=== PATIENT | male | born 1960 | race Hispanic/Latino ===

== ENCOUNTER 2016-11-14 09:57 | Day surgery (SDC) | payer OTHER ==
[2016-11-08 13:39] VITALS: BMI 33.6
[2016-11-14] MEDS ORDERED: Propofol 10 mg/ml Inj (20 ML) ONE ×2 (10:59→11:15)
[2016-11-14] MEDS ORDERED: Lactated Ringer's 1,000 ML IV SCH (11:35)
[2016-11-14 13:29] VITALS: BP 146/88; PULSE 68; RESP 16; TEMP 98; O2SAT 96
== END 2016-11-14 14:20 | disposition home or self-care (01) ==
LOC: ENDO 09:57
PROVIDERS: ATTEND Internal Medicine Gastroenterology
DX: K22.70 Barrett's esophagus without dysplasia (principal); K29.50 Unspecified chronic gastritis without bleeding; K21.9 Gastro-esophageal reflux disease without esophagitis; K64.8 Other hemorrhoids

== ENCOUNTER 2017-01-09 19:07 | Observation (INO) | payer OTHER ==
[2017-01-09] MEDS ORDERED: Morphine 2 mg/ml ISec IVP STA (20:06)
[2017-01-09] MEDS: Sodium Chloride 0.9% 1,000 ML IV SCH (20:57)
[2017-01-09 21:14] LABS: URINE BILIRUBIN NEGATIVE (NEGATIVE); URINE BLOOD NEGATIVE (NEGATIVE); URINE GLUCOSE (UA) NEGATIVE (NEGATIVE); URINE LEUKOCYTE ESTERASE NEGATIVE Leu/uL (NEGATIVE); URINE NITRATE NEGATIVE (NEGATIVE); URINE PROTEIN TRACE mg/dL (<30 mg/dL)
[2017-01-09 21:15] LABS: URINE APPEARANCE SL CLOUDY (CLEAR); URINE COLOR YELLOW (YELLOW); VENOUS BLOOD GAS PO2 33 mm/Hg (30-55); VENOUS BLOOD PH 7.36 (7.32-7.43)
[2017-01-09 21:16] LABS: BASO # 0.01 K/mm3 (0.0-2.0); BASO % 0.1 % (0.0-3.0); EOS # 0.2 (0.0-0.7); EOS % 2.7 % (1.5-5.0); GRAN # 5.73 (1.4-6.5); GRAN % 69.9 % (50.0-68.0); HEMOGLOBIN 15.4 gm/dL (14.0-18.0); LYMPH # 1.5 (1.2-3.4); LYMPH % 17.7 % (22.0-35.0); MEAN CELL VOLUME 87.9 fL (80.0-105.0); MEAN CORPUSCULAR HEMOGLOBIN 30.6 pg (25.0-35.0); MEAN CORPUSCULAR HGB CONC 34.8 g/dl (31.0-37.0); MEAN PLATELET VOLUME 11.1 fl (7.0-11.0); MONO # 0.8 (0.1-0.6); MONO % 9.6 % (1.0-6.0); PLATELET COUNT 171 10^3/uL (120.0-450.0); RBC 5.03 10^6/uL (3.5-6.1); WHITE BLOOD COUNT 8.2 10^3/ul (4.5-11.0)
[2017-01-09 21:25] LABS: ALB/GLOB RATIO 1.2 (1.1-1.8); ALBUMIN 4.1 g/dL (3.0-4.8); ALT/SGPT 41 U/L (7-56); AMYLASE 55 U/L (35-125); AST/SGOT 29 U/L (15-59); BLOOD UREA NITROGEN 19 mg/dL (7-21); CALCIUM 8.9 mg/dL (8.4-10.5); GFR AFRICAN-AMERICAN > 60; GFR NON-AFRICAN AMERICAN > 60; LIPASE 65 U/L (23-300)
[2017-01-09 21:29] LABS: URINE RBC 0 - 2 /hpf (0-2)
[2017-01-09 21:32] LABS: URINE BACTERIA OCC (NEG); URINE EPITHELIAL CELLS 0 - 2 /hpf (0-5); URINE WBC 0 - 2 /hpf (0-6)
[2017-01-09 21:42] LABS: TROPONIN I < 0.01 ng/mL
[2017-01-09 21:49] LABS: INR 1.04 (0.93-1.08); PARTIAL THROMBOPLASTIN TIME 27.2 Seconds (23.7-30.8); PROTHROMBIN TIME 11.2 Seconds (9.9-11.8)
--- NOTE | 2017-01-09 22:50 | ED PDOC ---
Arrival/HPI - General Chief Complaint: Abdominal Pain Time Seen by Provider: 01/09/17 19:14 Historian: Patient - History of Present Illness Narrative History of Present Illness (Text): 01/09/17 19:30 Bradley Briggs is a 56 year old male, with a history of cholecystectomy, presents to the emergency department complaining of abdominal pain associated with nausea, vomiting, and diarrhea since yesterday. Denies any fever, chills, headache, dizziness, chest pain, shortness of breath, urinary symptoms, or any other complaints at this time. Time/Duration: Other (yesterday ) Symptom Onset: Gradual Symptom Course: Unchanged Severity Level: Mild Activities at Onset: Light Past Medical History - Provider Review Nursing Documentation Reviewed: Yes - Cardiac Hx Pacemaker: No Other/Comment: VSD age 11 - Neurological Hx Paralysis: No - Hematological/Oncological Hx Blood Transfusions: No - Musculoskeletal/Rheumatological Hx Musculoskeletal Disorders: Yes - Psychiatric Hx Emotional Abuse: No Hx Physical Abuse: No Hx Substance Use: No - Surgical History Hx Cholecystectomy: Yes - Anesthesia Hx Anesthesia Reactions: No Hx Malignant Hyperthermia: No - Suicidal Assessment Feels Threatened In Home Enviroment: No Family/Social History - Physician Review Nursing Documentation Reviewed: Yes Family/Social History: No Known Family HX Smoking Status: Never Smoked Hx Alcohol Use: Yes (MINIMAL) Hx Substance Use: No Hx Substance Use Treatment: No Allergies/Home Meds Allergies/Adverse Reactions: Allergies erythromycin base Allergy (Severe, Verified 01/10/17 08:23) ITCHING rash & hives withb itching Home Medications: Home Meds Medication Instructions Recorded Confirmed Olmesartan/Amlodipin/Hcthiazid 1 tab PO DAILY 04/20/12 01/10/17 [Tribenzor 5 mg-12.5 mg-40 mg] Pantoprazole [Protonix EC Tab] 40 mg PO DAILY 05/09/13 01/10/17 Naproxen Sodium [Aleve] 2 tab PO DAILY 01/10/17 01/10/17 Review of Systems - Physician Review All systems were reviewed & negative as marked: Yes - Review of Systems Constitutional: Normal. absent: Fatigue, Fevers Eyes: Normal Respiratory: Normal. absent: SOB, Cough, Sputum Gastrointestinal: Abdominal Pain, Diarrhea, Nausea, Vomiting Neurological: Normal. absent: Headache, Dizziness Physical Exam Vital Signs Reviewed: Yes Vital Signs Temp Pulse Resp BP Pulse Ox 01/10/17 03:20 98.5 F 76 18 111/77 01/10/17 02:23 77 16 98 01/09/17 23:00 81 16 114/46 L 97 01/09/17 21:24 96 H 16 132/75 97 01/09/17 19:10 99.1 F 87 18 135/84 98 Temperature: Afebrile Blood Pressure: Normal Pulse: Regular Respiratory Rate: Normal Appearance: Positive for: Well-Appearing, Non-Toxic, Comfortable Pain Distress: None Mental Status: Positive for: Alert and Oriented X 3 - Systems Exam Head: Present: Atraumatic, Normocephalic Pupils: Present: PERRL Extroacular Muscles: Present: EOMI Conjunctiva: Present: Normal Mouth: Present: Moist Mucous Membranes Neck: Present: Normal Range of Motion Respiratory/Chest: Present: Clear to Auscultation, Good Air Exchange. No: Respiratory Distress, Accessory Muscle Use Cardiovascular: Present: Regular Rate and Rhythm, Normal S1, S2. No: Murmurs Abdomen: Present: Tenderness (LLQ abdominal tenderness ), Normal Bowel Sounds. No: Distention, Peritoneal Signs, Rebound, Guarding Upper Extremity: Present: Normal Inspection. No: Cyanosis, Edema Lower Extremity: Present: Normal Inspection. No: Edema Neurological: Present: GCS=15, CN II-XII Intact, Speech Normal, Motor Func Grossly Intact, Normal Sensory Function Skin: Present: Warm, Dry, Normal Color. No: Rashes Psychiatric: Present: Alert, Oriented x 3, Normal Insight, Normal Concentration Medical Decision Making ED Course and Treatment: 01/09/17 19:30 Impression: A 56 year old male who presents to the emergency department complaining of abdominal pain associated with nausea, vomiting, and diarrhea since yesterday. Plan: -- CT abdomen Pelvis -- EKG -- Morphine -- Potassium chloride 20mEq -- IVF -- Zofran -- Blood Culture -- Reassess and disposition Progress Notes: 01/09/17 20:33 EKG reviewed by me: NSR @ 78 bpm. Right bundle branch block. Left anterior fascicular block. Bifasicular block. 01/09/17 21:37 CT Abdomen Pelvis reviewed: FINDINGS: Lower thorax: There is presence of gastric fluid within the distal esophagus which may represent gastroesophageal reflux. Lung bases clear. ABDOMEN: Liver: Unremarkable. No suspicious lesions are seen. Gallbladder and bile ducts: There has been a cholecystectomy. Mild compensatory biliary enlargement secondary to gallbladder absence. Pancreas: Unremarkable. No ductal dilation. Spleen: Unremarkable. No splenomegaly. Adrenals: Unremarkable. No mass. Kidneys and ureters: A simple cyst is identified in the patient's left kidney. Kidneys otherwise show no significant abnormalities. No obstructing stones. No hydronephrosis. Stomach and bowel: Dilated fluid-filled small bowel loops concerning for partial small bowel obstruction, measuring up to 3.4 cm. Location of the transition is not readily apparent. Some collapsed small bowel loops are seen in the mid and lower abdomen and in the right lower quadrant. Remaining bowel appears unremarkable. The stomach is fluid-filled without wall thickening or focal lesions. Appendix: A normal appendix is identified. PELVIS: Bladder: Unremarkable. No stones. Reproductive: Unremarkable as visualized. ABDOMEN and PELVIS: Intraperitoneal space: Unremarkable. No free air. No significant fluid collection. Bones/joints: The spine demonstrates moderate degenerative changes at multiple levels. No acute fracture. No dislocation. Soft tissues: Small fat-containing paraumbilical hernia is present. Vasculature: Unremarkable. No abdominal aortic aneurysm. Lymph nodes: Unremarkable. No enlarged lymph nodes. IMPRESSION: Findings concerning for partial small bowel obstruction without a clear transition. Appendix is normal. Patient post cholecystectomy. Simple left renal cyst. Thank you for allowing us to participate in the care of your patient. Dictated and Authenticated by: Lul Finn MD 01/10/17 01:10 Case discussed with who is aware and agrees with the plan to observe patient at Med/Surg for partial small bowel obstruction. Accepts patient under his service. 01/11/17 05:15 - Lab Interpretations Microbiology Results: Microbiology Results 01/09/17 21:00 Blood-Venous Blood Culture - Preliminary NO GROWTH AFTER 24 HOURS 01/09/17 20:30 Blood-Venous Blood Culture - Preliminary NO GROWTH AFTER 24 HOURS Lab Results: 01/09/17 21:00 01/09/17 21:00 Lab Results 01/09/17 21:00: Phosphorus 3.5, Magnesium 1.8 01/09/17 21:00: pO2 33, VBG pH 7.36, VBG pCO2 55.0, VBG HCO3 31.1 H, VBG Total CO2 32.8 H, VBG O2 Sat (Calc) 68.7 H, VBG Base Excess 4.0 H, VBG Potassium 3.2 L , Sodium 139.0, Chloride 103.0, Glucose 109, Lactate 1.0, FiO2 21.0, Venous Blood Potassium 3.2 L 01/09/17 21:00: Sodium 140, Chloride 100, Potassium 3.1 L, Carbon Dioxide 29, Anion Gap 14, BUN 19, Creatinine 0.9, Est GFR ( Amer) > 60, Est GFR (Non- Af Amer) > 60, Random Glucose 106, Calcium 8.9, Total Bilirubin 0.8, AST 29, ALT 41, Alkaline Phosphatase 83, Lactate Dehydrogenase 263 L, Total Creatine Kinase 151, Troponin I < 0.01, Total Protein 7.4, Albumin 4.1, Globulin 3.4, Albumin/Globulin Ratio 1.2, Amylase 55, Lipase 65 01/09/17 21:00: Urine Color Yellow, Urine Appearance Sl cloudy, Urine pH 6.0, Ur Specific [place] >= 1.030, Urine Protein Trace H, Urine Glucose (UA) Negative , Urine Ketones Negative, Urine Blood Negative, Urine Nitrate Negative, Urine Bilirubin Negative, Urine Urobilinogen 1.0 H, Ur Leukocyte Esterase Negative, Urine RBC 0 - 2, Urine WBC 0 - 2, Ur Epithelial Cells 0 - 2, Urine Bacteria Occ 01/09/17 21:00: PT 11.2, INR 1.04, APTT 27.2 01/09/17 21:00: WBC 8.2, RBC 5.03, Hgb 15.4, Hct 44.2, MCV 87.9, MCH 30.6, MCHC 34.8, RDW 13.0, Plt Count 171, MPV 11.1 H, Gran % 69.9 H, Lymph % (Auto) 17.7 L , [place] % (Auto) 9.6 H, Eos % (Auto) 2.7, Baso % (Auto) 0.1, Gran # 5.73, Lymph # 1.5, [place] # 0.8 H, Eos # 0.2, Baso # 0.01 I have reviewed the lab results: Yes - RAD Interpretation Radiology Orders: 01/09/17 20:06 ABD & PELVIS W/O PO OR IV CONT [CT] Stat Packing Machine Can Feeder: Radiologist - EKG Interpretation Interpreted by ED Physician: Yes Type: 12 lead EKG - Medication Orders Current Medication Orders: Amlodipine Besylate (Norvasc) 5 mg PO DAILY [facility] Last Admin: 01/10/17 09:30 Dose: 5 mg Heparin Sodium (Porcine) (Heparin) 5,000 units SC Q12 [facility] PRN Reason: Protocol Last Admin: 01/10/17 22:04 Dose: 5,000 units Hydrochlorothiazide (Microzide) 12.5 mg PO DAILY [facility] Last Admin: 01/10/17 09:30 Dose: 12.5 mg Sodium Chloride (Sodium Chloride 0.9%) 1,000 mls @ 80 mls/hr IV .[id number] [facility] Last Admin: 01/10/17 03:59 Dose: 80 mls/hr Losartan Potassium (Cozaar) 100 mg PO DAILY [facility] Last Admin: 01/10/17 09:29 Dose: 100 mg Pantoprazole Sodium (Protonix Ec Tab) 40 mg PO 0600 [facility] Discontinued Medications Potassium Chloride (Potassium Chloride 20 Meq/100 Ml) 20 meq in 100 mls @ 50 mls/hr IVPB ONCE ONE Stop: 01/09/17 23:32 Last Admin: 01/10/17 00:34 Dose: 50 mls/hr Potassium Chloride (Potassium Chloride 20 Meq/100 Ml) 20 meq in 100 mls @ 50 mls/hr IVPB ONCE STA Stop: 01/10/17 02:53 Last Admin: 01/10/17 04:00 Dose: 50 mls/hr Morphine Sulfate (Morphine) 2 mg IVP STAT STA Stop: 01/09/17 20:07 Last Admin: 01/09/17 20:57 Dose: 2 mg Ondansetron HCl (Zofran Inj) 4 mg IVP STAT STA Stop: 01/09/17 20:07 Last Admin: 01/09/17 20:57 Dose: 4 mg Pantoprazole Sodium (Protonix Ec Tab) 40 mg PO STAT STA Stop: 01/10/17 00:39 Last Admin: 01/10/17 02:49 Dose: 40 mg Pantoprazole Sodium (Protonix Susp) 40 mg PO 0600 [facility] Last Admin: 01/10/17 07:04 Dose: - Scribe Statement The provider has reviewed the documentation as recorded by the Demond López Provider Attestation: Provider Scribe Attestation: All medical record entries made by the Scribe were at my direction and personally dictated by me. I have reviewed the chart and agree that the record accurately reflects my personal performance of the history, physical exam, medical decision making, and the department course for this patient. I have also personally directed, reviewed, and agree with the discharge instructions and disposition. Disposition/Present on Arrival - Present on Arrival Any Indicators Present on Arrival: No History of DVT/PE: No History of Uncontrolled Diabetes: No Urinary Catheter: No History of Decub. Ulcer: No History Surgical Site Infection Following: None - Disposition Have Diagnosis and Disposition been Completed?: Yes Diagnosis: Small bowel obstruction Disposition: HOSPITALIZED Disposition Time: 22:00 Condition: FAIR
--- NOTE | 2017-01-09 23:58 | CP.PCM.HP ---
History of Present Illness - History of Present Illness History of Present Illness: Patient is a 56 year old male with a PMHx of hypertension, pre- barretts esophagus, TOF, VSD, cervical stenosis who presents to the ED for evaluation of abdominal pain which began last Sunday evening after eating food from 01/02. The pain is described as dull and burning in nature and remains localized to the RLL and LLL. Patient admits to tolerating diet, experiencing flatus, and having nonbloody bowel movements, one of which was experienced in the ED. Denies fever, chills, chest pain, SOB, vomitting, diarrhea, constipation , and urinary symptoms. PMHx: hypertension, pre-barretts esophagus, TOF, VSD, cervical stenosis PSHx: cholecystectomy, R shoulder rotator cuff and labrum repair, left knee athroscopy, Social Hx: occasional ETOH use, denies tobacco use, denies illicit drug use Allergies: erythromycin- hives Family Hx: mother - diabetes Meds: Please see med rec Present on Admission - Present on Admission Any Indicators Present on Admission: No Review of Systems - Review of Systems Review of Systems: 12 point review of system negative except as indicated in HPI. Past Patient History - Past Social History Smoking Status: Never Smoked - CARDIAC Hx Pacemaker: No Other/Comment: VSD age 11 - NEUROLOGICAL Hx Paralysis: No - HEMATOLOGICAL/ONCOLOGICAL Hx Blood Transfusions: No - MUSCULOSKELETAL/RHEUMATOLOGICAL Hx Musculoskeletal Disorders: Yes - PSYCHIATRIC Hx Emotional Abuse: No Hx Physical Abuse: No Hx Substance Use: No - SURGICAL HISTORY Hx Cholecystectomy: Yes - ANESTHESIA Hx Anesthesia Reactions: No Hx Malignant Hyperthermia: No Meds Allergies/Adverse Reactions: Allergies Allergy/AdvReac Type Severity Reaction Status Date / Time erythromycin base Allergy Severe ITCHING Verified 11/08/16 13:40 Physical Exam - Constitutional Appears: Well, Non-toxic, No Acute Distress - Head Exam Head Exam: ATRAUMATIC, NORMAL INSPECTION - Eye Exam Eye Exam: EOMI, Normal appearance, PERRL - ENT Exam ENT Exam: Mucous Membranes Moist - Neck Exam Neck exam: Positive for: Normal Inspection. Negative for: Tenderness - Respiratory Exam Respiratory Exam: Clear to Auscultation Bilateral, NORMAL BREATHING PATTERN. absent: Rales, Rhonchi, Wheezes - Cardiovascular Exam Cardiovascular Exam: REGULAR RHYTHM, +S1, +S2 - GI/Abdominal Exam GI & Abdominal Exam: Normal Bowel Sounds, Soft, Tenderness. absent: Distended, Guarding, Rebound, Rigid Additional comments: no fluid wave - Back Exam Back exam: NORMAL INSPECTION - Neurological Exam Neurological exam: Alert, CN II-XII Intact, Oriented x3 - Psychiatric Exam Psychiatric exam: Normal Affect, Normal Mood - Skin Skin Exam: Normal Color, Warm Results - Vital Signs Recent Vital Signs: Last Vital Signs Temp 99.1 F 01/09/17 19:10 Pulse 81 01/09/17 23:00 Resp 16 01/09/17 23:00 BP 114/46 L 01/09/17 23:00 Pulse Ox 97 01/09/17 23:00 - Labs Result Diagrams: 01/09/17 21:00 01/09/17 21:00 Labs: Laboratory Results - last 24 hr 01/09/17 01/09/17 01/09/17 21:00 21:00 21:00 WBC 8.2 RBC 5.03 Hgb 15.4 Hct 44.2 MCV 87.9 MCH 30.6 MCHC 34.8 RDW 13.0 Plt Count 171 MPV 11.1 H Gran % 69.9 H Lymph % (Auto) 17.7 L [place] % (Auto) 9.6 H Eos % (Auto) 2.7 Baso % (Auto) 0.1 Gran # 5.73 Lymph # 1.5 [place] # 0.8 H Eos # 0.2 Baso # 0.01 PT 11.2 INR 1.04 APTT 27.2 pO2 VBG pH VBG pCO2 VBG HCO3 VBG Total CO2 VBG O2 Sat (Calc) VBG Base Excess VBG Potassium Sodium Chloride Glucose Lactate FiO2 Potassium Carbon Dioxide Anion Gap BUN Creatinine Est GFR ( Amer) Est GFR (Non-Af Amer) Random Glucose Calcium Total Bilirubin AST ALT Alkaline Phosphatase Lactate Dehydrogenase Total Creatine Kinase Troponin I Total Protein Albumin Globulin Albumin/Globulin Ratio Amylase Lipase Venous Blood Potassium Urine Color Yellow Urine Appearance Sl cloudy Urine pH 6.0 Ur Specific [place] >= 1.030 Urine Protein Trace H Urine Glucose (UA) Negative Urine Ketones Negative Urine Blood Negative Urine Nitrate Negative Urine Bilirubin Negative Urine Urobilinogen 1.0 H Ur Leukocyte Esterase Negative Urine RBC 0 - 2 Urine WBC 0 - 2 Ur Epithelial Cells 0 - 2 Urine Bacteria Occ 01/09/17 01/09/17 21:00 21:00 WBC RBC Hgb Hct MCV MCH MCHC RDW Plt Count MPV Gran % Lymph % (Auto) [place] % (Auto) Eos % (Auto) Baso % (Auto) Gran # Lymph # [place] # Eos # Baso # PT INR APTT pO2 33 VBG pH 7.36 VBG pCO2 55.0 VBG HCO3 31.1 H VBG Total CO2 32.8 H VBG O2 Sat (Calc) 68.7 H VBG Base Excess 4.0 H VBG Potassium 3.2 L Sodium 140 139.0 Chloride 100 103.0 Glucose 109 Lactate 1.0 FiO2 21.0 Potassium 3.1 L Carbon Dioxide 29 Anion Gap 14 BUN 19 Creatinine 0.9 Est GFR ( Amer) > 60 Est GFR (Non-Af Amer) > 60 Random Glucose 106 Calcium 8.9 Total Bilirubin 0.8 AST 29 ALT 41 Alkaline Phosphatase 83 Lactate Dehydrogenase 263 L Total Creatine Kinase 151 Troponin I < 0.01 Total Protein 7.4 Albumin 4.1 Globulin 3.4 Albumin/Globulin Ratio 1.2 Amylase 55 Lipase 65 Venous Blood Potassium 3.2 L Urine Color Urine Appearance Urine pH Ur Specific [place] Urine Protein Urine Glucose (UA) Urine Ketones Urine Blood Urine Nitrate Urine Bilirubin Urine Urobilinogen Ur Leukocyte Esterase Urine RBC Urine WBC Ur Epithelial Cells Urine Bacteria Assessment & Plan - Assessment and Plan (Free Text) Assessment: Patient is a 56 year old male with a PMHx of hypertension, pre-barretts esophagus, TOF, VSD, cervical stenosis who is being admitted for evaluation and treatment of abdominal pain. 1. Abdominal Pain - CT without IV or PO contrast of abdomen and pelvis official read pending at time of admission - as per ER physician the the scan is showing a partial bowel obstruction - pantoprazole - NPO - IVF NS @ 75 2. Hypokalemia - replete - monitor via bmp 3. Hypertension - continue home tribenzor 4. GERD - protonixs - keep head of bed greater than 30 degrees 5. PPX - subq heparin Patient discussed with attending, Dr. Garsia
[2017-01-10] MEDS ORDERED: Pantoprazole 40 mg EC Tab PO STA (00:38)
[2017-01-10 03:29] LABS: MAGNESIUM 1.8 mg/dL (1.7-2.2)
[2017-01-10] MEDS: Sodium Chloride 0.9% 1,000 ML IV SCH (03:59)
[2017-01-10 04:37] VITALS: BMI 33.6
[2017-01-10] MEDS ORDERED: Pantoprazole 40 mg Susp UD PO SCH (06:00)
[2017-01-10 06:52] LABS: BASO # 0.01 K/mm3 (0.0-2.0); BASO % 0.2 % (0.0-3.0); EOS # 0.1 (0.0-0.7); EOS % 2.8 % (1.5-5.0); GRAN # 2.68 (1.4-6.5); HEMOGLOBIN 12.7 gm/dL (14.0-18.0); LYMPH # 1.4 (1.2-3.4); LYMPH % 29.1 % (22.0-35.0); MEAN CELL VOLUME 88.4 fL (80.0-105.0); MEAN CORPUSCULAR HGB CONC 33.9 g/dl (31.0-37.0); MEAN PLATELET VOLUME 10.8 fl (7.0-11.0); MONO # 0.5 (0.1-0.6); MONO % 10.9 % (1.0-6.0); PLATELET COUNT 154 10^3/uL (120.0-450.0); RBC 4.24 10^6/uL (3.5-6.1); RED CELL DISTRIBUTION WIDTH 13.2 % (11.5-14.5); WHITE BLOOD COUNT 4.7 10^3/ul (4.5-11.0)
[2017-01-10 07:52] LABS: ALB/GLOB RATIO 1.2 (1.1-1.8); ALT/SGPT 33 U/L (7-56); AST/SGOT 18 U/L (15-59); BLOOD UREA NITROGEN 16 mg/dL (7-21); CALCIUM 7.9 mg/dL (8.4-10.5); GFR AFRICAN-AMERICAN > 60; GFR NON-AFRICAN AMERICAN > 60
--- NOTE | 2017-01-10 10:50 | CT ---
PROCEDURE: CT Abdomen and Pelvis without intravenous contrast HISTORY: abd pain COMPARISON: 10/15/2016 TECHNIQUE: Without contrast. Contrast Dose: Radiation dose: Total exam DLP = 1000 mGy-cm. This CT exam was performed using one or more of the following dose reduction techniques: Automated exposure control, adjustment of the mA and/or kV according to patient size, and/or use of iterative reconstruction technique. FINDINGS: LOWER THORAX: Unremarkable. LIVER: Unremarkable. No gross lesion or ductal dilatation. GALLBLADDER AND BILE DUCTS: Gallbladder removed PANCREAS: Unremarkable. No gross lesion or ductal dilatation. SPLEEN: Unremarkable. ADRENALS: Unremarkable. No mass. KIDNEYS AND URETERS: Unremarkable. No hydronephrosis. No solid mass. VASCULATURE: Unremarkable. No aortic aneurysm. BOWEL: Dilated small bowel loops are seen proximally measuring up to 3.4 cm. Distal small bowel loops are normal in caliber. The exact transition point cannot be identified. Findings consistent with partial small bowel obstruction APPENDIX: Unremarkable. Normal appendix. PERITONEUM: Unremarkable. No free fluid. No free air. LYMPH NODES: Unremarkable. No enlarged lymph nodes. BLADDER: Unremarkable. REPRODUCTIVE: Unremarkable. BONES: No acute fracture. OTHER FINDINGS: The report concurs with the preliminary [facility] report IMPRESSION: Partial small bowel obstruction
--- NOTE | 2017-01-10 12:25 | CP.PCM.CON ---
History of Present Illness - History of Present Illness History of Present Illness: General Surgery Consult Note Dr. Purcell Patient presented to ED yesterday 01/09 for abdominal pain in RLQ and LLQ which started Saturday 01/06. Surgery consulted for advice on advancing diet. Patient states tenderness, nausea, subjective fever, malaise. denies vomiting. Yesterday morning he had some formed stool and an episode of soft stool at the ED. CT scan without PO/IV contrast showed a final reading of Partial SBO. Patient seen at bedside, admits to being comfortable. His last colonoscopy showed diverticuli. Patient denies flatus or BM since admission. PMH: HTN, VSD and TOF repair, cervical stenosis, per-barretts esophagus PSH: Bilateral Inguinal hernia repair (laparascopic) and Cholecystectomy 10 years ago. Allergies: Erythromycin Review of Systems - Constitutional Constitutional: As Per HPI, Malaise - Cardiovascular Cardiovascular: absent: Chest Pain, Pedal Edema - Respiratory Respiratory: absent: Stridor - Gastrointestinal Gastrointestinal: Abdominal Pain, Constipation, Heartburn, Loose Stools. absent : Diarrhea, Excessive Flatus, Fecal Incontinence, Hematemesis, Hematochezia, Melena Past Patient History - Past Social History Smoking Status: Never Smoked - CARDIAC Hx Pacemaker: No Other/Comment: VSD age 11 - PULMONARY Hx Respiratory Disorders: Yes Hx Asthma: Yes (touch of asthma 15 yrs ago) Hx Bronchitis: Yes - NEUROLOGICAL Hx Paralysis: No - HEENT Hx HEENT Problems: No - RENAL Hx Chronic Kidney Disease: No - ENDOCRINE/METABOLIC Hx Endocrine Disorders: No - HEMATOLOGICAL/ONCOLOGICAL Hx Blood Transfusions: No - INTEGUMENTARY Hx Dermatological Problems: No - MUSCULOSKELETAL/RHEUMATOLOGICAL Hx Musculoskeletal Disorders: Yes - GASTROINTESTINAL Hx Gastrointestinal Disorders: Yes Hx Diverticulitis: Yes Hx Gall Bladder Disease: Yes (post cholecystectomy) Hx Gastroesophageal Reflux: Yes Other/Comment: pre Barrets esophagus, esphageal erosions - GENITOURINARY/GYNECOLOGICAL Hx Genitourinary Disorders: No - PSYCHIATRIC Hx Emotional Abuse: No Hx Physical Abuse: No Hx Substance Use: No - SURGICAL HISTORY Hx Cholecystectomy: Yes - ANESTHESIA Hx Anesthesia Reactions: No Hx Malignant Hyperthermia: No Meds Allergies/Adverse Reactions: Allergies Allergy/AdvReac Type Severity Reaction Status Date / Time erythromycin base Allergy Severe ITCHING Verified 01/10/17 08:23 - Medications Medications: Current Medications Amlodipine Besylate (Norvasc) 5 mg PO DAILY [facility] Last Admin: 01/10/17 09:30 Dose: 5 mg Heparin Sodium (Porcine) (Heparin) 5,000 units SC Q12 [facility] PRN Reason: Protocol Last Admin: 01/10/17 09:29 Dose: 5,000 units Hydrochlorothiazide (Microzide) 12.5 mg PO DAILY [facility] Last Admin: 01/10/17 09:30 Dose: 12.5 mg Sodium Chloride (Sodium Chloride 0.9%) 1,000 mls @ 80 mls/hr IV .[id number] [facility] Last Admin: 01/10/17 03:59 Dose: 80 mls/hr Losartan Potassium (Cozaar) 100 mg PO DAILY [facility] Last Admin: 01/10/17 09:29 Dose: 100 mg Pantoprazole Sodium (Protonix Ec Tab) 40 mg PO 0600 [facility] Physical Exam - Constitutional Appears: Well - Head Exam Head Exam: NORMAL INSPECTION - Eye Exam Eye Exam: EOMI, Normal appearance Pupil Exam: NORMAL ACCOMODATION - ENT Exam ENT Exam: Mucous Membranes Moist - GI/Abdominal Exam GI & Abdominal Exam: Hypoactive Bowel Sounds, Soft, Tenderness. absent: Distended, Firm, Guarding, Hernia, Hyperactive Bowel Sounds, Pulsatile Mass, Rebound, Rigid Additional comments: rlq tenderness and periumbilical tenderness Results - Vital Signs Recent Vital Signs: Last Vital Signs Temp 97.8 F 01/10/17 06:00 Pulse 67 01/10/17 06:00 Resp 18 01/10/17 06:00 BP 115/70 01/10/17 09:30 Pulse Ox 97 01/10/17 06:00 - Labs Result Diagrams: 01/10/17 06:15 01/10/17 06:30 Labs: Laboratory Results - last 24 hr 01/10/17 01/10/17 06:15 06:30 WBC 4.7 D RBC 4.24 Hgb 12.7 L Hct 37.5 L MCV 88.4 MCH 30.0 MCHC 33.9 RDW 13.2 Plt Count 154 MPV 10.8 Gran % 57.0 Lymph % (Auto) 29.1 [place] % (Auto) 10.9 H Eos % (Auto) 2.8 Baso % (Auto) 0.2 Gran # 2.68 Lymph # 1.4 [place] # 0.5 Eos # 0.1 Baso # 0.01 Sodium 139 Potassium 3.6 Chloride 103 Carbon Dioxide 28 Anion Gap 12 BUN 16 Creatinine 0.8 Est GFR ( Amer) > 60 Est GFR (Non-Af Amer) > 60 Random Glucose 103 Calcium 7.9 L Total Bilirubin 0.5 AST 18 ALT 33 Alkaline Phosphatase 65 Total Protein 5.5 L Albumin 3.0 Globulin 2.5 Albumin/Globulin Ratio 1.2
--- NOTE | 2017-01-10 12:37 | CARD ---
APPROVED REPORT EKG Measurement Heart [id number] <Conclusion> Normal sinus rhythm Right bundle branch block Left anterior fascicular block Bifascicular block Cannot rule out Inferior infarct (masked by fascicular block?), age undetermined Abnormal ECG
--- NOTE | 2017-01-10 20:30 | CP.PCM.PN ---
Addendum entered and electronically signed by Wayne Jones DO 01/12/17 09:48: Patient was seen and examined and case was discussed at length with Dr. Buenrostro. Patient having some residual abdominal pain but no N/V. Surgery to see patient. Wayne Jones D.O. PGY-2 Original Note: <ZACHARY BUENROSTRO - Last Filed: 01/10/17 19:52> Subjective - Date & Time of Evaluation Date of Evaluation: 01/10/17 Time of Evaluation: 06:45 - Subjective Subjective: Zachary Buenrostro DO PGY1 - Internal Medicine Progress Note - Dedousis/Adaniel Service Patient seen and evaluated at bedside. Patient was admitted yesterday after CT scan in ED was concerning for partial SBO per ED physician. Today, he still feels distended, and hasn't had a BM since his BM in the ED, but has passed flatus. He denies abdominal pain, nausea, vomiting, diarrhea, F/C. He also endorses a normal appetite. Objective - Vital Signs/Intake and Output Vital Signs (last 24 hours): Temp Pulse Resp BP Pulse Ox 98.4 F 50 L 19 134/89 97 01/10/17 16:00 01/10/17 16:00 01/10/17 16:00 01/10/17 16:00 01/10/17 16:00 Intake and Output: 01/10/17 01/11/17 18:59 06:59 Intake Total 360 Output Total 1 Balance 359 - Medications Medications: Current Medications Amlodipine Besylate (Norvasc) 5 mg PO DAILY [facility] Last Admin: 01/10/17 09:30 Dose: 5 mg Heparin Sodium (Porcine) (Heparin) 5,000 units SC Q12 [facility] PRN Reason: Protocol Last Admin: 01/10/17 09:29 Dose: 5,000 units Hydrochlorothiazide (Microzide) 12.5 mg PO DAILY [facility] Last Admin: 01/10/17 09:30 Dose: 12.5 mg Sodium Chloride (Sodium Chloride 0.9%) 1,000 mls @ 80 mls/hr IV .[id number] [facility] Last Admin: 01/10/17 03:59 Dose: 80 mls/hr Losartan Potassium (Cozaar) 100 mg PO DAILY [facility] Last Admin: 01/10/17 09:29 Dose: 100 mg Pantoprazole Sodium (Protonix Ec Tab) 40 mg PO 0600 [facility] - Labs Labs: 01/10/17 06:15 01/10/17 06:30 PT 11.2 Seconds (9.9-11.8) 01/09/17 21:00 INR 1.04 (0.93-1.08) 01/09/17 21:00 APTT 27.2 Seconds (23.7-30.8) 01/09/17 21:00 - Constitutional Appears: Non-toxic, No Acute Distress - Head Exam Head Exam: ATRAUMATIC, NORMOCEPHALIC - Eye Exam Eye Exam: EOMI, Normal appearance - ENT Exam ENT Exam: Mucous Membranes Moist - Neck Exam Neck Exam: Full ROM, Normal Inspection. absent: Meningismus, Tenderness - Respiratory Exam Respiratory Exam: Clear to Ausculation Bilateral. absent: Rales, Rhonchi, Wheezes - Cardiovascular Exam Cardiovascular Exam: RRR, +S1, +S2 - GI/Abdominal Exam GI & Abdominal Exam: Soft, Tenderness (Mild, LLQ, RLQ), Normal Bowel Sounds. absent: Guarding, Rigid - Extremities Exam Extremities Exam: Full ROM, Normal Inspection - Back Exam Back Exam: NORMAL INSPECTION. absent: CVA tenderness (L), CVA tenderness (R) - Neurological Exam Neurological Exam: Alert, Awake, Oriented x3 - Psychiatric Exam Psychiatric exam: Normal Affect, Normal Mood - Skin Skin Exam: Dry, Intact Assessment and Plan - Assessment and Plan (Free Text) Assessment: Patient is a 56 year old male with a PMHx of hypertension, TOF, VSD, cervical stenosis who is being treated for partial SBO. Plan: 1. Partial SBO - CT without IV or PO contrast of abdomen and pelvis read as significant for partial SBO - Continue pantoprazole - Advance to clear liquid diet - Consult general surgery - IVF NS @ 75 - Consider d/c tomorrow if patient has BM and normal appetite 2. Hypokalemia - Improved - Continue to monitor 3. Hypertension - Continue home tribenzor 4. GERD - Continue protonix - keep head of bed greater than 30 degrees DVT Ppx - SQ heparin Patient discussed with senior resident Dr. Jones PGY2 and attending, Dr. Webber <Pritesh Webber - Last Filed: 01/15/17 17:18> Objective - Vital Signs/Intake and Output Vital Signs (last 24 hours): Temp Pulse Resp BP Pulse Ox 97.6 F 68 19 140/92 H 97 01/11/17 16:00 01/11/17 16:00 01/11/17 16:00 01/11/17 16:00 01/11/17 16:00 - Labs Labs: 01/12/17 06:00 01/12/17 06:00 PT 11.2 Seconds (9.9-11.8) 01/09/17 21:00 INR 1.04 (0.93-1.08) 01/09/17 21:00 APTT 27.2 Seconds (23.7-30.8) 01/09/17 21:00 Attending/Attestation - Attestation I have personally seen and examined this patient.: Yes I have fully participated in the care of the patient.: Yes I have reviewed all pertinent clinical information, including history, physical exam and plan: Yes Notes (Text): 01/15/17 17:18 Medical record note made by the resident after discussion with my direction and input after the patient was personally seen and examined by me. I have reviewed the chart and agree that the record accurately reflects by personal performance of the history, physical exam, data review, and medical decision-making, in the course for the patient. I have also personally directed the plan of care.
[2017-01-11] MEDS: Pantoprazole 40 mg EC Tab PO SCH (05:54)
[2017-01-11] MEDS: Sodium Chloride 0.9% 1,000 ML IV SCH (05:55)
[2017-01-11 07:30] LABS: ALB/GLOB RATIO 1.1 (1.1-1.8); ALT/SGPT 39 U/L (7-56); AST/SGOT 24 U/L (15-59); BLOOD UREA NITROGEN 10 mg/dL (7-21); CALCIUM 7.9 mg/dL (8.4-10.5); GFR AFRICAN-AMERICAN > 60; GFR NON-AFRICAN AMERICAN > 60
[2017-01-11 07:34] LABS: BASO # 0.01 K/mm3 (0.0-2.0); BASO % 0.2 % (0.0-3.0); EOS # 0.2 (0.0-0.7); GRAN % 43.2 % (50.0-68.0); HEMOGLOBIN 12.7 gm/dL (14.0-18.0); LYMPH # 1.7 (1.2-3.4); LYMPH % 36.7 % (22.0-35.0); MEAN CELL VOLUME 88.8 fL (80.0-105.0); MEAN CORPUSCULAR HEMOGLOBIN 29.7 pg (25.0-35.0); MEAN CORPUSCULAR HGB CONC 33.5 g/dl (31.0-37.0); MEAN PLATELET VOLUME 11.5 fl (7.0-11.0); MONO # 0.7 (0.1-0.6); MONO % 14.9 % (1.0-6.0); PLATELET COUNT 163 10^3/uL (120.0-450.0); RBC 4.27 10^6/uL (3.5-6.1); RED CELL DISTRIBUTION WIDTH 12.9 % (11.5-14.5); WHITE BLOOD COUNT 4.6 10^3/ul (4.5-11.0)
--- NOTE | 2017-01-11 08:07 | CP.PCM.PN ---
Subjective - Date & Time of Evaluation Date of Evaluation: 01/11/17 Time of Evaluation: 08:03 - Subjective Subjective: General Surgery Note Resident: Maximino Attending: Binh EDMONDS. Pt seen and examined at bedside. Doing well with no complaints at this time. No belly pain. Denies N/V. Charles diet. Objective - Vital Signs/Intake and Output Vital Signs (last 24 hours): Temp Pulse Resp BP Pulse Ox 98.4 F 50 L 19 134/89 97 01/10/17 16:00 01/10/17 16:00 01/10/17 16:00 01/10/17 16:00 01/10/17 16:00 Intake and Output: 01/11/17 01/11/17 06:59 18:59 Intake Total 1320 Balance 1320 - Medications Medications: Current Medications Amlodipine Besylate (Norvasc) 5 mg PO DAILY [facility] Last Admin: 01/10/17 09:30 Dose: 5 mg Heparin Sodium (Porcine) (Heparin) 5,000 units SC Q12 [facility] PRN Reason: Protocol Last Admin: 01/10/17 22:04 Dose: 5,000 units Hydrochlorothiazide (Microzide) 12.5 mg PO DAILY [facility] Last Admin: 01/10/17 09:30 Dose: 12.5 mg Sodium Chloride (Sodium Chloride 0.9%) 1,000 mls @ 80 mls/hr IV .[id number] [facility] Last Admin: 01/11/17 05:55 Dose: 80 mls/hr Losartan Potassium (Cozaar) 100 mg PO DAILY [facility] Last Admin: 01/10/17 09:29 Dose: 100 mg Pantoprazole Sodium (Protonix Ec Tab) 40 mg PO 0600 [facility] Last Admin: 01/11/17 05:54 Dose: 40 mg Potassium Chloride (Potassium Chloride Oral Soln) 40 meq PO ONCE ONE Stop: 01/11/17 12:01 Potassium Chloride (Potassium Chloride Oral Soln) 40 meq PO STAT STA Stop: 01/11/17 08:01 - Labs Labs: 01/11/17 05:50 01/11/17 05:50 PT 11.2 Seconds (9.9-11.8) 01/09/17 21:00 INR 1.04 (0.93-1.08) 01/09/17 21:00 APTT 27.2 Seconds (23.7-30.8) 01/09/17 21:00 - Constitutional Appears: Well - Head Exam Head Exam: NORMAL INSPECTION - Eye Exam Eye Exam: EOMI - ENT Exam ENT Exam: Mucous Membranes Moist - Respiratory Exam Respiratory Exam: Clear to Ausculation Bilateral - Cardiovascular Exam Cardiovascular Exam: REGULAR RHYTHM - GI/Abdominal Exam GI & Abdominal Exam: Soft. absent: Distended, Firm, Tenderness - Neurological Exam Neurological Exam: Alert, Awake, Oriented x3 Assessment and Plan - Assessment and Plan (Free Text) Assessment: 56 y/o Male with a partial SBO * Charles diet * No surgical intervention needed at this time * ok for d/c from surgical standpoint * Will Discuss w/ Dr. Binh Stanton DO PGY-1
[2017-01-11] MEDS: Potassium Chloride 40 mEq/30 ml LIQ UD PO STA ×2 (08:47→11:16)
[2017-01-11] MEDS ORDERED: cefTRIAXone 1 gm 1 GM/100 ML BAG IVPB SCH (11:00)
[2017-01-11] MEDS ORDERED: Barium Sulfate Susp 2.1% w/v, 2.0% w/w 450 mL Bottle PO ONE (11:02)
[2017-01-11] MEDS ORDERED: Potassium Chloride 20 mEq ER Tab PO STA (11:20)
[2017-01-11] MEDS ORDERED: Potassium Chloride 40 mEq/30 ml LIQ UD PO ONE (12:00)
--- NOTE | 2017-01-11 12:10 | CP.PCM.CON ---
<Marva Rojo - Last Filed: 01/11/17 11:48> History of Present Illness - History of Present Illness History of Present Illness: Seen and examined , chart reviewed. Request for GI consult is for Partial SBO. HPI: This is a 56 year old male with a PMH of HTN, Barette's Esophagus, Obesity , came to the ER with complaints of abdominal pain that started on Sunday in the [facility]. This started after eating form 01/02, he had a taquito, he had nausea, urged to vomit, but had none. He also felt warm and took Augmentin that he was given for Upper respiratory infection that he never started, took one dose and had episode of diarrhea. No blood. He has been having formed BM. Still have abdominal pain. He is on solids and says that he tolerated it well. On admission he ad a ct scan and that reported partial SBO, transition point could not be determined. He did have EGD/Colon 10/2016, see chronic gastritis, esophagus BX no intestinal metaplasia, his colonoscopy reveal IH, the terminal ilieum was ok. PMX: HTN, BE,cervical stenosis, TOF,VSD PSH: bilateral inguinal repair,cholecystectomy, right rotator cuff and labrum repair, left knee surgery Allergies: erythromycin base MEDS: reviewed as per MAR Family HX: DM, mother Social HX: denies smoking, social ETOH use, denies drugs ROS: systems reviewed, with positive findings, see HPI Past Patient History - Past Social History Smoking Status: Never Smoked - CARDIAC Hx Pacemaker: No Other/Comment: VSD age 11 - PULMONARY Hx Respiratory Disorders: Yes Hx Asthma: Yes (touch of asthma 15 yrs ago) Hx Bronchitis: Yes - NEUROLOGICAL Hx Paralysis: No - HEENT Hx HEENT Problems: No - RENAL Hx Chronic Kidney Disease: No - ENDOCRINE/METABOLIC Hx Endocrine Disorders: No - HEMATOLOGICAL/ONCOLOGICAL Hx Blood Transfusions: No - INTEGUMENTARY Hx Dermatological Problems: No - MUSCULOSKELETAL/RHEUMATOLOGICAL Hx Musculoskeletal Disorders: Yes - GASTROINTESTINAL Hx Gastrointestinal Disorders: Yes Hx Diverticulitis: Yes Hx Gall Bladder Disease: Yes (post cholecystectomy) Hx Gastroesophageal Reflux: Yes Other/Comment: pre Barrets esophagus, esphageal erosions - GENITOURINARY/GYNECOLOGICAL Hx Genitourinary Disorders: No - PSYCHIATRIC Hx Emotional Abuse: No Hx Physical Abuse: No Hx Substance Use: No - SURGICAL HISTORY Hx Cholecystectomy: Yes - ANESTHESIA Hx Anesthesia Reactions: No Hx Malignant Hyperthermia: No Meds Allergies/Adverse Reactions: Allergies Allergy/AdvReac Type Severity Reaction Status Date / Time erythromycin base Allergy Severe ITCHING Verified 01/10/17 08:23 - Medications Medications: Current Medications Amlodipine Besylate (Norvasc) 5 mg PO DAILY [facility] Last Admin: 01/11/17 09:34 Dose: 5 mg Heparin Sodium (Porcine) (Heparin) 5,000 units SC Q12 [facility] PRN Reason: Protocol Last Admin: 01/11/17 09:35 Dose: 5,000 units Hydrochlorothiazide (Microzide) 12.5 mg PO DAILY [facility] Last Admin: 01/11/17 09:34 Dose: 12.5 mg Metronidazole (Flagyl) 500 mg in 100 mls @ 100 mls/hr IVPB Q8 [facility] PRN Reason: Protocol Ceftriaxone Sodium (Rocephin 1 Gram Ivpb) 1 gm in 100 mls @ 100 mls/hr IVPB DAILY [facility] PRN Reason: Protocol Potassium Chloride (Potassium Chloride 20 Meq/100 Ml) 20 meq in 100 mls @ 50 mls/hr IVPB ONCE ONE Stop: 01/11/17 13:19 Losartan Potassium (Cozaar) 100 mg PO DAILY [facility] Last Admin: 01/11/17 09:35 Dose: 100 mg Pantoprazole Sodium (Protonix Ec Tab) 40 mg PO 0600 [facility] Last Admin: 01/11/17 05:54 Dose: 40 mg Physical Exam - Constitutional Appears: No Acute Distress - Head Exam Head Exam: NORMAL INSPECTION - Eye Exam Eye Exam: Normal appearance. absent: Scleral icterus - ENT Exam ENT Exam: Mucous Membranes Moist - Neck Exam Neck exam: Positive for: Normal Inspection - Respiratory Exam Respiratory Exam: Clear to Auscultation Bilateral, NORMAL BREATHING PATTERN. absent: Respiratory Distress - Cardiovascular Exam Cardiovascular Exam: +S1, +S2 - GI/Abdominal Exam GI & Abdominal Exam: Distended, Normal Bowel Sounds, Soft, Tenderness. absent: Guarding, Organomegaly (right lower quaderant tenderness), Rebound - Extremities Exam Extremities exam: Positive for: pedal pulses present. Negative for: calf tenderness, pedal edema - Neurological Exam Neurological exam: Alert, Oriented x3 - Skin Skin Exam: Dry, Warm Results - Vital Signs Recent Vital Signs: Last Vital Signs Temp 97.5 F L 01/11/17 06:00 Pulse 75 07/20/17 09:34 Resp 20 01/11/17 06:00 BP 117/79 01/11/17 09:34 Pulse Ox 95 01/11/17 06:00 - Labs Result Diagrams: 01/11/17 05:50 01/11/17 05:50 Labs: Laboratory Results - last 24 hr 01/11/17 01/11/17 05:50 05:50 WBC 4.6 RBC 4.27 Hgb 12.7 L Hct 37.9 L MCV 88.8 MCH 29.7 MCHC 33.5 RDW 12.9 Plt Count 163 MPV 11.5 H Gran % 43.2 L Lymph % (Auto) 36.7 H [place] % (Auto) 14.9 H Eos % (Auto) 5.0 Baso % (Auto) 0.2 Gran # 2.00 Lymph # 1.7 [place] # 0.7 H Eos # 0.2 Baso # 0.01 Sodium 138 Potassium 3.0 L Chloride 105 Carbon Dioxide 27 Anion Gap 9 L BUN 10 Creatinine 0.7 Est GFR ( Amer) > 60 Est GFR (Non-Af Amer) > 60 Random Glucose 91 Calcium 7.9 L Total Bilirubin 0.6 AST 24 ALT 39 Alkaline Phosphatase 64 Total Protein 5.6 L Albumin 3.0 Globulin 2.6 Albumin/Globulin Ratio 1.1 Assessment & Plan - Assessment and Plan (Free Text) Assessment: ASSESSMENT: RLQ Abdominal Pain Partial SBO Gastroenteritis Obesity H/O Ramirez's Esophagus HTN PLAN: change diet to clear ct scan film reviewed with Dr. Lake, appear to may have inflammation TI, appendix appears stable, this was done without contrast, will repeat ct scan A& P with oral and IV contrast. continue IVF PPI start on empiric antibiotics: Ceftraixone and Flagyl, see order DVT prophylaxsis being followed by surgery Thank you for this consult and for allowing us to participate in your patients care. will make further recommendations based upon clinicla course. Seen and discussed with Dr. Lake. <Soniya Lake V - Last Filed: 01/11/17 21:56> Meds - Medications Medications: Current Medications Amlodipine Besylate (Norvasc) 5 mg PO DAILY [facility] Last Admin: 01/11/17 09:34 Dose: 5 mg Heparin Sodium (Porcine) (Heparin) 5,000 units SC Q12 [facility] PRN Reason: Protocol Last Admin: 01/11/17 21:40 Dose: Not Given Hydrochlorothiazide (Microzide) 12.5 mg PO DAILY [facility] Last Admin: 01/11/17 09:34 Dose: 12.5 mg Ceftriaxone Sodium (Rocephin 1 Gram Ivpb) 1 gm in 100 mls @ 100 mls/hr IVPB DAILY [facility] PRN Reason: Protocol Last Admin: 01/11/17 12:09 Dose: 100 mls/hr Losartan Potassium (Cozaar) 100 mg PO DAILY [facility] Last Admin: 01/11/17 09:35 Dose: 100 mg Metronidazole (Flagyl) 500 mg PO Q8 [facility] PRN Reason: Protocol Last Admin: 01/11/17 21:36 Dose: 500 mg Pantoprazole Sodium (Protonix Ec Tab) 40 mg PO 0600 [facility] Last Admin: 01/11/17 05:54 Dose: 40 mg Results - Vital Signs Recent Vital Signs: Last Vital Signs Temp 97.6 F 01/11/17 16:00 Pulse 68 01/11/17 16:00 Resp 19 01/11/17 16:00 BP 140/92 H 01/11/17 16:00 Pulse Ox 97 01/11/17 16:00 - Labs Result Diagrams: 01/11/17 05:50 01/11/17 05:50 Labs: Laboratory Results - last 24 hr 01/11/17 01/11/17 01/11/17 05:50 05:50 12:24 WBC 4.6 RBC 4.27 Hgb 12.7 L Hct 37.9 L MCV 88.8 MCH 29.7 MCHC 33.5 RDW 12.9 Plt Count 163 MPV 11.5 H Gran % 43.2 L Lymph % (Auto) 36.7 H [place] % (Auto) 14.9 H Eos % (Auto) 5.0 Baso % (Auto) 0.2 Gran # 2.00 Lymph # 1.7 [place] # 0.7 H Eos # 0.2 Baso # 0.01 Sodium 138 Potassium 3.0 L Chloride 105 Carbon Dioxide 27 Anion Gap 9 L BUN 10 Creatinine 0.7 Est GFR ( Amer) > 60 Est GFR (Non-Af Amer) > 60 Random Glucose 91 Calcium 7.9 L Total Bilirubin 0.6 AST 24 ALT 39 Alkaline Phosphatase 64 Total Protein 5.6 L Albumin 3.0 Globulin 2.6 Albumin/Globulin Ratio 1.1 Urine Color Yellow Urine Appearance Clear Urine pH 7.0 Ur Specific [place] 1.015 Urine Protein Negative Urine Glucose (UA) Negative Urine Ketones Negative Urine Blood Negative Urine Nitrate Negative Urine Bilirubin Negative Urine Urobilinogen 4.0 H Ur Leukocyte Esterase Negative Attending/Attestation - Attestation I have personally seen and examined this patient.: Yes I have fully participated in the care of the patient.: Yes I have reviewed all pertinent clinical information: Yes Notes (Text): this this
[2017-01-11 12:29] LABS: URINE BILIRUBIN NEGATIVE (NEGATIVE); URINE BLOOD NEGATIVE (NEGATIVE); URINE GLUCOSE (UA) NEGATIVE (NEGATIVE); URINE LEUKOCYTE ESTERASE NEGATIVE Leu/uL (NEGATIVE); URINE NITRATE NEGATIVE (NEGATIVE); URINE PROTEIN NEGATIVE mg/dL (<30 mg/dL)
[2017-01-11 12:33] LABS: URINE APPEARANCE CLEAR (CLEAR); URINE COLOR YELLOW (YELLOW)
[2017-01-11] MEDS ORDERED: metroNIDAZOLE IV 500 mg/100 ml 500 MG/100 ML BAG IVPB SCH (14:00)
--- NOTE | 2017-01-11 14:55 | CT ---
PROCEDURE: CT Abdomen and Pelvis with contrast HISTORY: abdominal pain, right side, repeat w/contrast COMPARISON: None. TECHNIQUE: Contrast dose: Omnipaque 350, 150 cc Radiation dose: Total exam DLP = 1066 mGy-cm. This CT exam was performed using one or more of the following dose reduction techniques: Automated exposure control, adjustment of the mA and/or kV according to patient size, and/or use of iterative reconstruction technique. FINDINGS: LOWER THORAX: Unremarkable. LIVER: Subtle diffuse penetration liver is identified. No gross lesion or ductal dilatation. GALLBLADDER AND BILE DUCTS: Prior cholecystectomy apparent. PANCREAS: Unremarkable. No gross lesion or ductal dilatation. SPLEEN: Unremarkable. ADRENALS: Unremarkable. No mass. KIDNEYS AND URETERS: Stable 3.5 cm left renal cyst again evident. No hydronephrosis. No solid mass. VASCULATURE: Unremarkable. No aortic aneurysm. BOWEL: Prior small-bowel dilatation appears to have resolved. No obstruction. No gross mural thickening. APPENDIX: Normal appendix. PERITONEUM: Unremarkable. No free fluid. No free air. LYMPH NODES: Unremarkable. No enlarged lymph nodes. BLADDER: Unremarkable. REPRODUCTIVE: Unremarkable. BONES: No acute fracture. OTHER FINDINGS: Tiny umbilical hernia is again seen containing only a small amount of fat. IMPRESSION: Apparent resolution of small bowel obstruction with small labs per large-bowel loops not normally caliber diffusely. No mesenteric edema, free air, or abscess. Additional lesser findings as discussed above.
--- NOTE | 2017-01-11 19:10 | CP.PCM.PN ---
Subjective - Date & Time of Evaluation Date of Evaluation: 01/11/17 Time of Evaluation: 06:45 - Subjective Subjective: Zachary Buenrostro DO PGY1 - Internal Medicine Progress Note - Ivan/Akbar Service Patient seen and evaluated at bedside. He feels somewhat better, and has been passing flatus and had a BM. He denies abdominal pain, nausea, vomiting, diarrhea, F/C. He also endorses a normal appetite. Objective - Vital Signs/Intake and Output Vital Signs (last 24 hours): Temp Pulse Resp BP Pulse Ox 97.5 F L 75 20 117/79 95 01/11/17 06:00 01/11/17 09:34 01/11/17 06:00 01/11/17 09:34 01/11/17 06:00 - Medications Medications: Current Medications Amlodipine Besylate (Norvasc) 5 mg PO DAILY [facility] Last Admin: 01/11/17 09:34 Dose: 5 mg Heparin Sodium (Porcine) (Heparin) 5,000 units SC Q12 [facility] PRN Reason: Protocol Last Admin: 01/11/17 09:35 Dose: 5,000 units Hydrochlorothiazide (Microzide) 12.5 mg PO DAILY [facility] Last Admin: 01/11/17 09:34 Dose: 12.5 mg Metronidazole (Flagyl) 500 mg in 100 mls @ 100 mls/hr IVPB Q8 [facility] PRN Reason: Protocol Last Admin: 01/11/17 13:22 Dose: 100 mls/hr Ceftriaxone Sodium (Rocephin 1 Gram Ivpb) 1 gm in 100 mls @ 100 mls/hr IVPB DAILY [facility] PRN Reason: Protocol Last Admin: 01/11/17 12:09 Dose: 100 mls/hr Losartan Potassium (Cozaar) 100 mg PO DAILY [facility] Last Admin: 01/11/17 09:35 Dose: 100 mg Pantoprazole Sodium (Protonix Ec Tab) 40 mg PO 0600 [facility] Last Admin: 01/11/17 05:54 Dose: 40 mg - Labs Labs: 01/11/17 05:50 01/11/17 05:50 PT 11.2 Seconds (9.9-11.8) 01/09/17 21:00 INR 1.04 (0.93-1.08) 01/09/17 21:00 APTT 27.2 Seconds (23.7-30.8) 01/09/17 21:00 - Constitutional Appears: Non-toxic, No Acute Distress - Head Exam Head Exam: ATRAUMATIC, NORMOCEPHALIC - Eye Exam Eye Exam: EOMI, Normal appearance - ENT Exam ENT Exam: Mucous Membranes Moist - Neck Exam Neck Exam: Full ROM, Normal Inspection. absent: Lymphadenopathy - Respiratory Exam Respiratory Exam: Clear to Ausculation Bilateral. absent: Rales, Rhonchi, Wheezes - Cardiovascular Exam Cardiovascular Exam: RRR, +S1, +S2 - GI/Abdominal Exam GI & Abdominal Exam: Soft Additional comments: Patient has some tenderness in RLQ, LLQ, suprapubic, epigastric, and RUQ. But when examining him while he is distracted, he does not complain at all. - Extremities Exam Extremities Exam: Normal Inspection. absent: Calf Tenderness, Pedal Edema - Neurological Exam Neurological Exam: Alert, Awake, Oriented x3 - Psychiatric Exam Psychiatric exam: Normal Affect, Normal Mood - Skin Skin Exam: Dry, Intact Assessment and Plan - Assessment and Plan (Free Text) Assessment: Patient is a 56 year old male with a PMHx of hypertension, TOF, VSD, cervical stenosis who is being treated for partial SBO. Plan: 1. Partial SBO - CT without IV or PO contrast of abdomen and pelvis read as significant for partial SBO - Continue pantoprazole - Advance to regular diet - General surgery consulted, appreciate all recs - GI (Jaya) consulted, appreciate all recs - Due to RLQ tenderness, GI recommends CT of abd/pel with PO and IV contrast today - IVF NS @ 75 - Consider d/c tomorrow if patient continues to have BM and normal appetite 2. Hypokalemia - Improved - Continue to monitor - Hold HCTZ 3. Hypertension - Continue home Losartan and Amlodipine 4. GERD - Continue protonix - Keep head of bed greater than 30 degrees DVT Ppx - SQ heparin Patient discussed with senior resident Dr. Jones PGY2 and attending, Dr. Love
[2017-01-11 19:26] VITALS: TEMP 97.6
[2017-01-11 19:27] VITALS: BP 140/92; PULSE 68; RESP 19; O2SAT 97
[2017-01-12] MEDS: Pantoprazole 40 mg EC Tab PO SCH (05:12)
[2017-01-12 06:25] LABS: BASO # 0.02 K/mm3 (0.0-2.0); BASO % 0.4 % (0.0-3.0); EOS # 0.2 (0.0-0.7); EOS % 4.2 % (1.5-5.0); GRAN # 2.05 (1.4-6.5); GRAN % 44.9 % (50.0-68.0); HEMOGLOBIN 12.4 gm/dL (14.0-18.0); LYMPH # 1.7 (1.2-3.4); LYMPH % 36.1 % (22.0-35.0); MEAN CELL VOLUME 87.7 fL (80.0-105.0); MEAN CORPUSCULAR HEMOGLOBIN 29.2 pg (25.0-35.0); MEAN CORPUSCULAR HGB CONC 33.3 g/dl (31.0-37.0); MEAN PLATELET VOLUME 10.9 fl (7.0-11.0); MONO # 0.7 (0.1-0.6); MONO % 14.4 % (1.0-6.0); PLATELET COUNT 159 10^3/uL (120.0-450.0); RBC 4.24 10^6/uL (3.5-6.1); RED CELL DISTRIBUTION WIDTH 12.8 % (11.5-14.5); WHITE BLOOD COUNT 4.6 10^3/ul (4.5-11.0)
[2017-01-12 06:42] LABS: ALB/GLOB RATIO 1.2 (1.1-1.8); ALT/SGPT 35 U/L (7-56); AST/SGOT 20 U/L (15-59); BLOOD UREA NITROGEN 9 mg/dL (7-21); CALCIUM 8.5 mg/dL (8.4-10.5); GFR AFRICAN-AMERICAN > 60; GFR NON-AFRICAN AMERICAN > 60
--- NOTE | 2017-01-12 08:23 | CP.PCM.PN ---
Subjective - Date & Time of Evaluation Date of Evaluation: 01/12/17 Time of Evaluation: 08:18 - Subjective Subjective: General Surgery Note Resident: Maximino Attending: Binh HPI: Patient seen and examined at bedside. Doing well with no complaints at this time. Denies belly pain. Tolerating diet. +bm/+Flatus. -N/V/CP/SOB/F. Objective - Vital Signs/Intake and Output Vital Signs (last 24 hours): Temp Pulse Resp BP Pulse Ox 97.6 F 68 19 140/92 H 97 01/11/17 16:00 01/11/17 16:00 01/11/17 16:00 01/11/17 16:00 01/11/17 16:00 Intake and Output: 01/12/17 01/12/17 06:59 18:59 Intake Total 780 Balance 780 - Medications Medications: Current Medications Heparin Sodium (Porcine) (Heparin) 5,000 units SC Q12 [facility] PRN Reason: Protocol Last Admin: 01/11/17 21:40 Dose: Not Given Ceftriaxone Sodium (Rocephin 1 Gram Ivpb) 1 gm in 100 mls @ 100 mls/hr IVPB DAILY [facility] PRN Reason: Protocol Last Admin: 01/11/17 12:09 Dose: 100 mls/hr Metronidazole (Flagyl) 500 mg PO Q8 [facility] PRN Reason: Protocol Last Admin: 01/12/17 05:12 Dose: 500 mg Pantoprazole Sodium (Protonix Ec Tab) 40 mg PO 0600 [facility] Last Admin: 01/12/17 05:12 Dose: 40 mg - Labs Labs: 01/12/17 06:00 01/12/17 06:00 PT 11.2 Seconds (9.9-11.8) 01/09/17 21:00 INR 1.04 (0.93-1.08) 01/09/17 21:00 APTT 27.2 Seconds (23.7-30.8) 01/09/17 21:00 - Constitutional Appears: Well - Head Exam Head Exam: NORMAL INSPECTION - Eye Exam Eye Exam: EOMI - ENT Exam ENT Exam: Mucous Membranes Moist - Respiratory Exam Respiratory Exam: Clear to Ausculation Bilateral - Cardiovascular Exam Cardiovascular Exam: REGULAR RHYTHM - GI/Abdominal Exam GI & Abdominal Exam: Soft. absent: Distended, Firm, Tenderness - Neurological Exam Neurological Exam: Alert, Awake, Oriented x3 Assessment and Plan - Assessment and Plan (Free Text) Assessment: 56 y/o WM s/p Partial SBO * pain resolved, nancy. diet * cleared for D/c from surgery standpoint * Will Discuss with Dr. Binh Stanton DO PGY-1
--- NOTE | 2017-01-12 09:20 | CP.PCM.DIS ---
Addendum entered and electronically signed by Wayne Jones DO 01/15/17 09:41: Patient was seen and examined and case was discussed at length with Dr. Putnam throughout admission. Patient's SBO resolved with bowel rest alone. Was evaluated by GI and surgery during admission, all recs appreciated. Will see in office next week. Wayne Jones D.O. PGY-2 Original Note: <AIDA PUTNAM - Last Filed: 01/12/17 13:04> Provider - Provider Date of Admission: 01/10/17 01:10 Attending physician: Damien Love MD Primary care physician: Damien Love MD Consults: Surgery: Binh GI: Jaya Time Spent in preparation of Discharge (in minutes): 45 Diagnosis - Discharge Diagnosis (1) Small bowel obstruction Status: Acute Priority: High Hospital Course - Lab Results Lab Results: Most Recent Lab Values WBC 4.6 10^3/ul (4.5-11.0) 01/12/17 06:00 RBC 4.24 10^6/uL (3.5-6.1) 01/12/17 06:00 Hgb 12.4 gm/dL (14.0-18.0) L 01/12/17 06:00 Hct 37.2 % (42.0-52.0) L 01/12/17 06:00 MCV 87.7 fL (80.0-105.0) 01/12/17 06:00 MCH 29.2 pg (25.0-35.0) 01/12/17 06:00 MCHC 33.3 g/dl (31.0-37.0) 01/12/17 06:00 RDW 12.8 % (11.5-14.5) 01/12/17 06:00 Plt Count 159 10^3/uL (120.0-450.0) 01/12/17 06:00 MPV 10.9 fl (7.0-11.0) 01/12/17 06:00 Gran % 44.9 % (50.0-68.0) L 01/12/17 06:00 Lymph % (Auto) 36.1 % (22.0-35.0) H 01/12/17 06:00 Johnson % (Auto) 14.4 % (1.0-6.0) H 01/12/17 06:00 Eos % (Auto) 4.2 % (1.5-5.0) 01/12/17 06:00 Baso % (Auto) 0.4 % (0.0-3.0) 01/12/17 06:00 Gran # 2.05 (1.4-6.5) 01/12/17 06:00 Lymph # 1.7 (1.2-3.4) 01/12/17 06:00 Johnson # 0.7 (0.1-0.6) H 01/12/17 06:00 Eos # 0.2 (0.0-0.7) 01/12/17 06:00 Baso # 0.02 K/mm3 (0.0-2.0) 01/12/17 06:00 PT 11.2 Seconds (9.9-11.8) 01/09/17 21:00 INR 1.04 (0.93-1.08) 01/09/17 21:00 APTT 27.2 Seconds (23.7-30.8) 01/09/17 21:00 pO2 33 mm/Hg (30-55) 01/09/17 21:00 VBG pH 7.36 (7.32-7.43) 01/09/17 21:00 VBG pCO2 55.0 (40-60) 01/09/17 21:00 VBG HCO3 31.1 mmol/l (21-28) H 01/09/17 21:00 VBG Total CO2 32.8 mmol.L (22-28) H 01/09/17 21:00 VBG O2 Sat (Calc) 68.7 % (40-65) H 01/09/17 21:00 VBG Base Excess 4.0 mmol/L (0.0-2.0) H 01/09/17 21:00 VBG Potassium 3.2 mmol/L (3.6-5.2) L 01/09/17 21:00 Sodium 139.0 mmol/L (132-148) 01/09/17 21:00 Chloride 103.0 mmol/L (98-107) 01/09/17 21:00 Glucose 109 mg/dl (75-110) 01/09/17 21:00 Lactate 1.0 mmol/L (0.7-2.1) 01/09/17 21:00 FiO2 21.0 % 01/09/17 21:00 Sodium 141 mmol/L (132-148) 01/12/17 06:00 Potassium 3.6 mmol/L (3.6-5.0) 01/12/17 06:00 Chloride 105 mmol/L (95-110) 01/12/17 06:00 Carbon Dioxide 28 mmol/L (21-33) 01/12/17 06:00 Anion Gap 12 (10-20) 01/12/17 06:00 BUN 9 mg/dL (7-21) 01/12/17 06:00 Creatinine 0.9 mg/dL (0.5-1.4) 01/12/17 06:00 Est GFR ( Amer) > 60 01/12/17 06:00 Est GFR (Non-Af Amer) > 60 01/12/17 06:00 Random Glucose 107 mg/dL (70-110) 01/12/17 06:00 Calcium 8.5 mg/dL (8.4-10.5) 01/12/17 06:00 Phosphorus 3.5 mg/dL (2.5-4.5) 01/09/17 21:00 Magnesium 1.8 mg/dL (1.7-2.2) 01/09/17 21:00 Total Bilirubin 0.3 mg/dL (0.2-1.3) 01/12/17 06:00 AST 20 U/L (15-59) 01/12/17 06:00 ALT 35 U/L (7-56) 01/12/17 06:00 Alkaline Phosphatase 61 U/L (38-133) 01/12/17 06:00 Lactate Dehydrogenase 263 U/L (333-699) L 01/09/17 21:00 Total Creatine Kinase 151 U/L (35-230) 01/09/17 21:00 Troponin I < 0.01 ng/mL 01/09/17 21:00 Total Protein 5.4 g/dL (5.8-8.3) L 01/12/17 06:00 Albumin 3.0 g/dL (3.0-4.8) 01/12/17 06:00 Globulin 2.5 gm/dL 01/12/17 06:00 Albumin/Globulin Ratio 1.2 (1.1-1.8) 01/12/17 06:00 Amylase 55 U/L (35-125) 01/09/17 21:00 Lipase 65 U/L (23-300) 01/09/17 21:00 Venous Blood Potassium 3.2 mmol/L (3.6-5.2) L 01/09/17 21:00 Urine Color Yellow (YELLOW) 01/11/17 12:24 Urine Appearance Clear (CLEAR) 01/11/17 12:24 Urine pH 7.0 (4.7-8.0) 01/11/17 12:24 Ur Specific Lynn 1.015 (1.005-1.035) 01/11/17 12:24 Urine Protein Negative mg/dL (<30 mg/dL) 01/11/17 12:24 Urine Glucose (UA) Negative mg/dL (NEGATIVE) 01/11/17 12:24 Urine Ketones Negative mg/dL (NEGATIVE) 01/11/17 12:24 Urine Blood Negative (NEGATIVE) 01/11/17 12:24 Urine Nitrate Negative (NEGATIVE) 01/11/17 12:24 Urine Bilirubin Negative (NEGATIVE) 01/11/17 12:24 Urine Urobilinogen 4.0 E.U./dL (<1 E.U./dL) H 01/11/17 12:24 Ur Leukocyte Esterase Negative Speedy/uL (NEGATIVE) 01/11/17 12:24 Urine RBC 0 - 2 /hpf (0-2) 01/09/17 21:00 Urine WBC 0 - 2 /hpf (0-6) 01/09/17 21:00 Ur Epithelial Cells 0 - 2 /hpf (0-5) 01/09/17 21:00 Urine Bacteria Occ (NEG) 01/09/17 21:00 - Hospital Course Hospital Course: 56[place] [facility] [place] with c/o bilateral lower quadrant abdominal pain. In the ED, noncontrast CT of abdomen and pelvis showed partial small bowel obstruction. Patient was made NPO and started on protonix and IVF. He was also found to be hypokalemic, which was repleted during his hospitalization. The following day, his diet was advanced, and he had a normal appetite, had a BM in the afternoon, and denied N/V/D/C, though he still complained of some abdominal distention and had tenderness on exam. On 01/11, he continued to have some mild abdominal pain and tenderness, GI and surgery were consulted, and CT scan was repeated with contrast. Empiric antibiotics were started per GI. In the evening , the CT was read as negative, and surgery and GI signed off. Today, patient is sitting comfortably, no longer complaining of abdominal pain or diarrhea. Tenderness is significantly improved. He is tolerating a regular diet and is having normal solid BMs. All medications were discussed, including antibiotics and discontinuation of Tribenzor to avoid hypokalemia and f/u outpaient for his HTN. He was encouraged to drink more water and increase fiber in his diet, and to avoid eating processed, fried foods from -. All questions were answered to patient's satisfaction and he was discharged to home. Discharge Exam - Head Exam Head Exam: NORMAL INSPECTION - Eye Exam Eye Exam: EOMI, Normal appearance, PERRL - ENT Exam ENT Exam: Mucous Membranes Moist - Neck Exam Neck exam: Normal Inspection - Respiratory Exam Respiratory Exam: Clear to PA & Lateral. absent: Rales, Rhonchi, Wheezes - Cardiovascular Exam Cardiovascular Exam: RRR, +S1, +S2 - GI/Abdominal Exam GI & Abdominal Exam: Normal Bowel Sounds, Soft, Unremarkable. absent: Rebound, Rigid, Tenderness - Extremities Exam Extremities exam: normal inspection - Back Exam Back exam: absent: CVA tenderness (L), CVA tenderness (R) - Neurological Exam Neurological exam: Alert, Oriented x3 - Psychiatric Exam Psychiatric exam: Normal Affect, Normal Mood - Skin Skin Exam: Dry, Intact Discharge Plan - Discharge Medications Prescriptions: Metronidazole 500 mg PO Q8 10 Days - Follow Up Plan Condition: FAIR Disposition: HOME/ ROUTINE Instructions: High Fiber Diet (DC), Bowel Obstruction (DC) Additional Instructions: 1. Add fiber to diet and drink more fluids; do not eat any more 01-02 Taquitos or hot dogs. 2. Continue antibiotics as prescribed. Start taking multivitamin. 3. Discontinue Tribenzor. 4. Follow up with PCP within 1 week concerning abdominal pain, high blood pressure, low potassium, and anemia. 5. For any new or worsening symptoms or concerns, contact PCP immediately or return to ER. Referrals: Damien Love MD [Primary Care Provider] - Soniya Lake MD [Medical Doctor] - <Pritesh Webber - Last Filed: 01/15/17 17:31> Provider - Provider Date of Admission: 01/10/17 01:10 Attending physician: Damien Love MD Primary care physician: Damien Love MD Hospital Course - Lab Results Lab Results: Most Recent Lab Values WBC 4.6 10^3/ul (4.5-11.0) 01/12/17 06:00 RBC 4.24 10^6/uL (3.5-6.1) 01/12/17 06:00 Hgb 12.4 gm/dL (14.0-18.0) L 01/12/17 06:00 Hct 37.2 % (42.0-52.0) L 01/12/17 06:00 MCV 87.7 fL (80.0-105.0) 01/12/17 06:00 MCH 29.2 pg (25.0-35.0) 01/12/17 06:00 MCHC 33.3 g/dl (31.0-37.0) 01/12/17 06:00 RDW 12.8 % (11.5-14.5) 01/12/17 06:00 Plt Count 159 10^3/uL (120.0-450.0) 01/12/17 06:00 MPV 10.9 fl (7.0-11.0) 01/12/17 06:00 Gran % 44.9 % (50.0-68.0) L 01/12/17 06:00 Lymph % (Auto) 36.1 % (22.0-35.0) H 01/12/17 06:00 Johnson % (Auto) 14.4 % (1.0-6.0) H 01/12/17 06:00 Eos % (Auto) 4.2 % (1.5-5.0) 01/12/17 06:00 Baso % (Auto) 0.4 % (0.0-3.0) 01/12/17 06:00 Gran # 2.05 (1.4-6.5) 01/12/17 06:00 Lymph # 1.7 (1.2-3.4) 01/12/17 06:00 Johnson # 0.7 (0.1-0.6) H 01/12/17 06:00 Eos # 0.2 (0.0-0.7) 01/12/17 06:00 Baso # 0.02 K/mm3 (0.0-2.0) 01/12/17 06:00 PT 11.2 Seconds (9.9-11.8) 01/09/17 21:00 INR 1.04 (0.93-1.08) 01/09/17 21:00 APTT 27.2 Seconds (23.7-30.8) 01/09/17 21:00 pO2 33 mm/Hg (30-55) 01/09/17 21:00 VBG pH 7.36 (7.32-7.43) 01/09/17 21:00 VBG pCO2 55.0 (40-60) 01/09/17 21:00 VBG HCO3 31.1 mmol/l (21-28) H 01/09/17 21:00 VBG Total CO2 32.8 mmol.L (22-28) H 01/09/17 21:00 VBG O2 Sat (Calc) 68.7 % (40-65) H 01/09/17 21:00 VBG Base Excess 4.0 mmol/L (0.0-2.0) H 01/09/17 21:00 VBG Potassium 3.2 mmol/L (3.6-5.2) L 01/09/17 21:00 Sodium 139.0 mmol/L (132-148) 01/09/17 21:00 Chloride 103.0 mmol/L (98-107) 01/09/17 21:00 Glucose 109 mg/dl (75-110) 01/09/17 21:00 Lactate 1.0 mmol/L (0.7-2.1) 01/09/17 21:00 FiO2 21.0 % 01/09/17 21:00 Sodium 141 mmol/L (132-148) 01/12/17 06:00 Potassium 3.6 mmol/L (3.6-5.0) 01/12/17 06:00 Chloride 105 mmol/L (95-110) 01/12/17 06:00 Carbon Dioxide 28 mmol/L (21-33) 01/12/17 06:00 Anion Gap 12 (10-20) 01/12/17 06:00 BUN 9 mg/dL (7-21) 01/12/17 06:00 Creatinine 0.9 mg/dL (0.5-1.4) 01/12/17 06:00 Est GFR ( Amer) > 60 01/12/17 06:00 Est GFR (Non-Af Amer) > 60 01/12/17 06:00 Random Glucose 107 mg/dL (70-110) 01/12/17 06:00 Calcium 8.5 mg/dL (8.4-10.5) 01/12/17 06:00 Phosphorus 3.5 mg/dL (2.5-4.5) 01/09/17 21:00 Magnesium 1.8 mg/dL (1.7-2.2) 01/09/17 21:00 Total Bilirubin 0.3 mg/dL (0.2-1.3) 01/12/17 06:00 AST 20 U/L (15-59) 01/12/17 06:00 ALT 35 U/L (7-56) 01/12/17 06:00 Alkaline Phosphatase 61 U/L (38-133) 01/12/17 06:00 Lactate Dehydrogenase 263 U/L (333-699) L 01/09/17 21:00 Total Creatine Kinase 151 U/L (35-230) 01/09/17 21:00 Troponin I < 0.01 ng/mL 01/09/17 21:00 Total Protein 5.4 g/dL (5.8-8.3) L 01/12/17 06:00 Albumin 3.0 g/dL (3.0-4.8) 01/12/17 06:00 Globulin 2.5 gm/dL 01/12/17 06:00 Albumin/Globulin Ratio 1.2 (1.1-1.8) 01/12/17 06:00 Amylase 55 U/L (35-125) 01/09/17 21:00 Lipase 65 U/L (23-300) 01/09/17 21:00 Venous Blood Potassium 3.2 mmol/L (3.6-5.2) L 01/09/17 21:00 Urine Color Yellow (YELLOW) 01/11/17 12:24 Urine Appearance Clear (CLEAR) 01/11/17 12:24 Urine pH 7.0 (4.7-8.0) 01/11/17 12:24 Ur Specific Lynn 1.015 (1.005-1.035) 01/11/17 12:24 Urine Protein Negative mg/dL (<30 mg/dL) 01/11/17 12:24 Urine Glucose (UA) Negative mg/dL (NEGATIVE) 01/11/17 12:24 Urine Ketones Negative mg/dL (NEGATIVE) 01/11/17 12:24 Urine Blood Negative (NEGATIVE) 01/11/17 12:24 Urine Nitrate Negative (NEGATIVE) 01/11/17 12:24 Urine Bilirubin Negative (NEGATIVE) 01/11/17 12:24 Urine Urobilinogen 4.0 E.U./dL (<1 E.U./dL) H 01/11/17 12:24 Ur Leukocyte Esterase Negative Speedy/uL (NEGATIVE) 01/11/17 12:24 Urine RBC 0 - 2 /hpf (0-2) 01/09/17 21:00 Urine WBC 0 - 2 /hpf (0-6) 01/09/17 21:00 Ur Epithelial Cells 0 - 2 /hpf (0-5) 01/09/17 21:00 Urine Bacteria Occ (NEG) 01/09/17 21:00 Attending/Attestation - Attestation I have personally seen and examined this patient.: Yes I have fully participated in the care of the patient.: Yes I have reviewed all pertinent clinical information, including history, physical exam and plan: Yes Notes (Text): 01/15/17 17:31 Medical record note made by the resident after discussion with my direction and input after the patient was personally seen and examined by me. I have reviewed the chart and agree that the record accurately reflects by personal performance of the history, physical exam, data review, and medical decision-making, in the course for the patient. I have also personally directed the plan of care.
--- NOTE | 2017-01-12 11:23 | CP.PCM.PN ---
<Marva Rojo - Last Filed: 01/12/17 11:24> Subjective - Date & Time of Evaluation Date of Evaluation: 01/12/17 Time of Evaluation: 08:50 - Subjective Subjective: S&E at bedside, abdominal pain better, although has the chronic pain to right lower quadrant. No N/V, had episode of diarrhea, none since, formed stool now, no bleeding, fever or chills. NO acute overnight events. Objective - Vital Signs/Intake and Output Vital Signs (last 24 hours): Temp Pulse Resp BP Pulse Ox 97.6 F 68 19 140/92 H 97 01/11/17 16:00 01/11/17 16:00 01/11/17 16:00 01/11/17 16:00 01/11/17 16:00 Intake and Output: 01/12/17 01/12/17 06:59 18:59 Intake Total 780 Balance 780 - Medications Medications: Current Medications Heparin Sodium (Porcine) (Heparin) 5,000 units SC Q12 ON LICENSE OF [facility] PRN Reason: Protocol Last Admin: 01/11/17 21:40 Dose: Not Given Pantoprazole Sodium (Protonix Ec Tab) 40 mg PO 0600 ON LICENSE OF [facility] Last Admin: 01/12/17 05:12 Dose: 40 mg - Labs Labs: 01/12/17 06:00 01/12/17 06:00 PT 11.2 Seconds (9.9-11.8) 01/09/17 21:00 INR 1.04 (0.93-1.08) 01/09/17 21:00 APTT 27.2 Seconds (23.7-30.8) 01/09/17 21:00 - Constitutional Appears: No Acute Distress - Head Exam Head Exam: NORMOCEPHALIC - Eye Exam Eye Exam: Normal appearance. absent: Scleral icterus - ENT Exam ENT Exam: Mucous Membranes Moist - Neck Exam Neck Exam: Normal Inspection - Respiratory Exam Respiratory Exam: Clear to Ausculation Bilateral, NORMAL BREATHING PATTERN. absent: Respiratory Distress - Cardiovascular Exam Cardiovascular Exam: +S1, +S2 - GI/Abdominal Exam GI & Abdominal Exam: Soft, Tenderness (right lower quaderant, but better today.) , Normal Bowel Sounds. absent: Distended, Guarding, Rebound - Extremities Exam Extremities Exam: Normal Capillary Refill. absent: Calf Tenderness, Pedal Edema - Neurological Exam Neurological Exam: Alert, Awake, Oriented x3 Assessment and Plan - Assessment and Plan (Free Text) Assessment: ASSESSMENT: Chronic RLQ Abdominal Pain Resolved Partial SBO Gastroenteritis S/p hypokalemia Obesity H/O Ramirez's Esophagus HTN PLAN: diet advanced last night, continue as tolerated. continue IVF PPI DC Ceftraixone and Flagyl DVT prophylaxsis From GI point of view patient xray reviewed, resolved SBO, no inflammation, tolerating diet, had episode of diarrhea, maybe secondary to oral contrast, Patient does not require to be continued on antibiotics, DC'd. Discussed with patient outpatient FU in our outpt office and consider MRE further eval chronic right quadrant abdominal discomfort. Seen and discussed with Dr. Lake. <Soniya Lake V - Last Filed: 01/12/17 23:54> Objective - Vital Signs/Intake and Output Vital Signs (last 24 hours): Temp Pulse Resp BP Pulse Ox 97.6 F 68 19 140/92 H 97 01/11/17 16:00 01/11/17 16:00 01/11/17 16:00 01/11/17 16:00 01/11/17 16:00 - Labs Labs: 01/12/17 06:00 01/12/17 06:00 PT 11.2 Seconds (9.9-11.8) 01/09/17 21:00 INR 1.04 (0.93-1.08) 01/09/17 21:00 APTT 27.2 Seconds (23.7-30.8) 01/09/17 21:00 Attending/Attestation - Attestation I have personally seen and examined this patient.: Yes I have fully participated in the care of the patient.: Yes I have reviewed all pertinent clinical information, including history, physical exam and plan: Yes Notes (Text): t
== END 2017-01-12 14:31 | disposition home or self-care (01) ==
LOC: ED 19:07 → ERH 01-10 01:10 → 3RSO 01-10 03:09
PROVIDERS: ADMIT Internal Medicine; ATTEND Internal Medicine
DX: K56.60 Unspecified intestinal obstruction (principal); E87.6 Hypokalemia; I10 Essential (primary) hypertension; M48.02 Spinal stenosis, cervical region; K21.9 Gastro-esophageal reflux disease without esophagitis; K22.70 Barrett's esophagus without dysplasia; K29.50 Unspecified chronic gastritis without bleeding; K52.9 Noninfective gastroenteritis and colitis, unspecified; E66.9 Obesity, unspecified; Z68.33 Body mass index [BMI] 33.0-33.9, adult; Z87.74 Personal history of (corrected) congenital malformations of heart and circulatory system
CPT/HCPCS: 36415; 74176; 74177; 80053; 81001; 81003; 82150; 82550; 82803; 83615; 83690; 83735; 84100; 84484; 85025; 85610; 85730; 87040; 93005; 96374; 99285; G0378; J0696; J1644; J2270; J2405; J3480; J7040; Q9967

== ENCOUNTER 2017-03-27 16:22 | Emergency (ER) | payer OTHER ==
--- NOTE | 2017-03-27 16:31 | ED PDOC ---
Arrival/HPI - General Time Seen by Provider: 03/27/17 16:28 Historian: Patient - History of Present Illness Narrative History of Present Illness (Text): 03/27/17 16:28 56 y/o male, pmh including small bowel obstruction, allergic to macrolide, c/o lt. shoulder pain s/p heavy lifting and heard a cracking sound x 2 hours. Pt. stated that he was lifting a tailgate, heard the lt. shoulder cracking sound, been having pain since, aggravated by movement of the lt. shoulder, no numbness or tingling, no palpitation, no chest pain or shortness of breath, no other medical or psychological complaints. Past Medical History - Provider Review Nursing Documentation Reviewed: Yes - Cardiac Hx Pacemaker: No Other/Comment: VSD age 11 - Pulmonary Hx Respiratory Disorders: Yes Hx Asthma: Yes (touch of asthma 15 yrs ago) Hx Bronchitis: Yes - Neurological Hx Paralysis: No - HEENT Hx HEENT Disorder: No - Renal Hx Renal Disorder: No - Endocrine/Metabolic Hx Endocrine Disorders: No - Hematological/Oncological Hx Blood Transfusions: No - Integumentary Hx Dermatological Disorder: No - Musculoskeletal/Rheumatological Hx Musculoskeletal Disorders: Yes - Gastrointestinal Hx Gastrointestinal Disorders: Yes Hx Diverticulitis: Yes Hx Gall Bladder Disease: Yes (post cholecystectomy) Hx Gastroesophageal Reflux: Yes Other/Comment: pre Barrets esophagus, esphageal erosions - Genitourinary/Gynecological Hx Genitourinary Disorders: No - Psychiatric Hx Emotional Abuse: No Hx Physical Abuse: No Hx Substance Use: No - Surgical History Hx Cholecystectomy: Yes - Anesthesia Hx Anesthesia Reactions: No Hx Malignant Hyperthermia: No - Suicidal Assessment Feels Threatened In Home Enviroment: No Family/Social History - Physician Review Nursing Documentation Reviewed: Yes Family/Social History: Unknown Family HX Smoking Status: Never Smoked Hx Alcohol Use: Yes (MINIMAL) Hx Substance Use: No Hx Substance Use Treatment: No Allergies/Home Meds Allergies/Adverse Reactions: Allergies erythromycin base Allergy (Severe, Verified 01/10/17 08:23) ITCHING rash & hives withb itching Home Medications: Home Meds Medication Instructions Recorded Confirmed Pantoprazole [Protonix EC Tab] 40 mg PO DAILY 05/09/13 03/27/17 Olmesartan/Amlodipin/Hcthiazid 1 tab PO DAILY 03/27/17 03/27/17 [Tribenzor 5 mg-12.5 mg-40 mg] Review of Systems - Review of Systems Constitutional: absent: Fatigue, Fevers Eyes: absent: Vision Changes ENT: absent: Hearing Changes Respiratory: absent: SOB, Cough Cardiovascular: absent: Chest Pain Gastrointestinal: absent: Abdominal Pain, Diarrhea, Nausea, Vomiting Musculoskeletal: Arthralgias. absent: Back Pain, Neck Pain, Joint Swelling, Myalgias Skin: absent: Rash, Pruritis Neurological: absent: Headache, Dizziness Physical Exam Vital Signs Temp Pulse Resp BP Pulse Ox 03/27/17 16:34 98.4 F 81 17 129/90 99 Appearance: Positive for: Well-Appearing, Non-Toxic, Comfortable Pain Distress: Severe Mental Status: Positive for: Alert and Oriented X 3 - Systems Exam Head: Present: Atraumatic, Normocephalic Pupils: Present: PERRL Extroacular Muscles: Present: EOMI Conjunctiva: Present: Normal Mouth: Present: Moist Mucous Membranes Neck: Present: Normal Range of Motion Respiratory/Chest: Present: Clear to Auscultation, Good Air Exchange. No: Respiratory Distress, Accessory Muscle Use Cardiovascular: Present: Regular Rate and Rhythm, Normal S1, S2. No: Murmurs Abdomen: Present: Normal Bowel Sounds. No: Tenderness, Distention, Peritoneal Signs Back: Present: Normal Inspection Upper Extremity: Present: Normal Inspection, Other (Lt. shoulder: +ttp on the lt. anterior and AC joint region, no swelling, no deformity, FROM without limitation, sensation intact, motor 5/5, +radial pulse, capillary refill< 2 seconds, neurovascular intact. ). No: Cyanosis, Edema Lower Extremity: Present: Normal Inspection. No: Edema Neurological: Present: GCS=15, CN II-XII Intact, Speech Normal Skin: Present: Warm, Dry, Normal Color. No: Rashes Psychiatric: Present: Alert, Oriented x 3, Normal Insight, Normal Concentration Medical Decision Making ED Course and Treatment: 03/27/17 16:32 -percocet -sling -xray 03/27/17 16:46 -Pt. refused perocet, only request tylenol for now 03/27/17 17:23 -xray show no fracture or dislocation. -Discharge home with celebrex, sling, ice compression, follow up with your own pmd and orthopedic within 2 days, return to the ER for any new or worsening signs or symptoms. - RAD Interpretation Radiology Orders: 03/27/17 16:43 SHOULDER LEFT [RAD] Stat PROCEDURE: Radiographs of the Left Shoulder HISTORY: lt shoulder injury and pain COMPARISON: None available. FINDINGS: BONES: No acute displaced fracture. The distal clavicle and underlying ribs appear intact. JOINTS: No acute dislocation. Acromioclavicular Glenohumeral joint space narrowing. High riding humeral head may be seen in the setting of chronic rotator cuff injury. SOFT TISSUES: Soft tissues appear unremarkable. No evidence of radiopaque foreign body. IMPRESSION: No acute displaced fracture or dislocation evident. If symptoms persist or if there is continued clinical concern, x-ray follow-up in 7-10 days should be considered. Degenerative changes as above. Sheet Metal Apprentice: Radiologist - Medication Orders Current Medication Orders: Discontinued Medications Acetaminophen (Tylenol 325mg Tab) 650 mg PO STAT STA Stop: 03/27/17 16:46 Last Admin: 03/27/17 17:16 Dose: 650 mg MAR Pain/Vitals Document 03/27/17 17:16 RD (Rec: 03/27/17 17:16 RD [id number]) Pain Reassessment Is This A Pain ReAssessment? No Sleep Is patient sleeping during reassessment? No Presence of Pain Presence of Pain Yes - PA / PRINT PRODUCER / Resident Statement MD/DO has reviewed & agrees with the documentation as recorded. Disposition/Present on Arrival - Present on Arrival Any Indicators Present on Arrival: No History of DVT/PE: No History of Uncontrolled Diabetes: No Urinary Catheter: No History of Decub. Ulcer: No History Surgical Site Infection Following: None - Disposition Have Diagnosis and Disposition been Completed?: Yes Diagnosis: Shoulder injury, Shoulder pain, Degenerative joint disease Disposition: HOME/ ROUTINE Disposition Time: 16:32 Patient Plan: Discharge Patient Problems: Current Active Problems Problem Status Onset Shoulder injury Acute Shoulder pain Acute Condition: IMPROVED Additional Instructions: -Discharge home with celebrex, sling, ice compression, follow up with your own pmd and orthopedic within 2 days, return to the ER for any new or worsening signs or symptoms. Prescriptions: Celecoxib [CeleBREX] 200 mg PO DAILY PRN #14 cap PRN Reason: Other Referrals: at [facility] [place]] - Follow up with primary Tomy Huynh MD [Staff Provider] - Follow up with primary Forms: WORK NOTE
[2017-03-27] MEDS ORDERED: Oxycodone/Acetaminophen 5/325 mg Tab PO STA (16:43)
[2017-03-27 16:50] VITALS: BP 129/90; PULSE 81; RESP 17; TEMP 98.4; O2SAT 99; BMI 34.0
--- NOTE | 2017-03-27 17:59 | RAD ---
PROCEDURE: Radiographs of the Left Shoulder HISTORY: lt shoulder injury and pain COMPARISON: None available. FINDINGS: BONES: No acute displaced fracture. The distal clavicle and underlying ribs appear intact. JOINTS: No acute dislocation. Acromioclavicular Glenohumeral joint space narrowing. High riding humeral head may be seen in the setting of chronic rotator cuff injury. SOFT TISSUES: Soft tissues appear unremarkable. No evidence of radiopaque foreign body. IMPRESSION: No acute displaced fracture or dislocation evident. If symptoms persist or if there is continued clinical concern, x-ray follow-up in 7-10 days should be considered. Degenerative changes as above.
== END 2017-03-27 18:09 | disposition home or self-care (01) ==
LOC: ED 16:22
DX: S49.92XA Unspecified injury of left shoulder and upper arm, initial encounter (principal); X50.0XXA Overexertion from strenuous movement or load, initial encounter; M19.90 Unspecified osteoarthritis, unspecified site; M25.512 Pain in left shoulder